=== PATIENT | male | born 1950 | race Caucasian/White ===

== ENCOUNTER 2019-08-17 07:10 | Day surgery (SDC) | payer BC ==
[~2019-08-17] VITALS: Ht 180.3 cm; Wt 99.8 kg
[~2019-08-17 07:10] MED LIST: ALLOPURINOL300 MG PO; ASPIR-LOW81 MG PO; ATENOLOL25 MG PO; DOXYCYCLINE HY100 MG PO; HYDROCHLOROTH12.5 MG PO; HYDROCODON-ACE1 EAC3 PO; LISINOPRIL20 MG PO; LOSARTAN POTAS100 MG PO; MEGA MULTIVIT1 EAC1 PO; MULTIVITAMINS1 EAC7 PO; OSTEO BI-FLEX1 EAC3 PO; PREDNISONE20 MG PO; SIMVASTATIN40 MG PO
[2019-08-17] MEDS ORDERED: TURMERIC500 M2 PO (07:52)
[2019-08-17] MEDS ORDERED: METFORMIN HCL500 MG PO (07:53)
--- NOTE | 2019-08-17 09:29 | NUR ---
08/17/19 0929 Citlalli,Brie 0916 PT ARRIVED TO PACU ON 2L VIA NC, PT AWAKE AND TALKING TO RN. VSS. 0920 O2 REMOVED. PLAN OF CARE DISCUSSED AND RN ENCOURAGED TO PASS GAS.
--- NOTE | 2019-08-17 16:08 | OR ---
[facility] [address] [place], [place] [address] Signed DATE OF OPERATION: 08/17/2019 SURGEON: Karina Barrios MD PREOPERATIVE DIAGNOSES: 1. Family history of colon cancer (mother at 61). 2. Positive Cologuard test. POSTOPERATIVE DIAGNOSIS: Polyps x3. PROCEDURE: Total colonoscopy to cecum with hot snare polypectomy x1 at splenic flexure and cold morcellation polypectomy x2, cecum and right colon. ANESTHESIA: Intravenous sedation fentanyl 100 mcg and Versed 9 mg. INDICATION: A 68-year-old white man is a patient of Dr. Jensen. He has family history of colon cancer in his mother, who of the disease at age 61. Due to the COVID-19 pandemic, he underwent a Cologuard test on the direction of Dr. Jensen, which was found to be positive and on that basis, he is now here for colonoscopy. The risks of bleeding, infection, and perforation were reviewed with him he understands wished to proceed. FINDINGS: The prep was excellent. Complete colonoscopy was undertaken of the cecum. There were two small polyps on the right side at the cecum and the right colon, both excised with cold morcellation technique. A larger polyp was noted at the splenic flexure, which was excised with hot snare polypectomy technique. The remaining colon was normal. DESCRIPTION OF PROCEDURE: The patient was brought to the endoscopy suite and placed in lateral decubitus position. Given intravenous sedation to the point of slurred speech and nystagmus with full cardiopulmonary monitoring. Digital rectal examination was normal. An Olympus video colonoscope was passed in the rectum and manipulated throughout the colon ultimately intubating the cecum, ileocecal valve was identified as was the appendiceal orifice. Intubation of the ileum showed no sign of abnormality. The scope was withdrawn and a small polyp was noted in the cecum. Narrow band imaging confirmed Electronically Signed By: KARINA BARRIOS MD 08/17/19 1608 PATIENT NAME: CHRIS CAM OPERATIVE REPORT DATE OF : 50 REPORT #: [id number] PHYSICIAN: KARINA BARRIOS MD PCP: GERARDO JENSEN MD REPORT IS CONFIDENTIAL AND NOT TO BE RELEASED WITHOUT AUTHORIZATION [facility] [address], [place] [address] Signed it likely to be an adenoma. It was excised with cold morcellation technique without problem. The scope was further withdrawn. Another similar such polyp was noted in the right colon, which was excised similarly. Careful withdrawal of scope showed another larger sessile polyp at the left transverse or splenic flexure area. This was excised with hot snare polypectomy technique without problem. Further withdrawal of scope showed no other abnormalities. Retroflexed view was normal. Scope was removed. The patient was taken to the recovery room in good condition. CONCLUDING DIAGNOSIS: Polyps x3. PLAN: Recommend a repeat colonoscopy in 3 years given the polyps, sooner if symptoms should occur. He will return to the ongoing care of Dr. Jensen otherwise. MD YRN Wade/LUCY /[id number] cc: Gerardo Jensen MD Copies: GERARDO JENSEN MD ~ Electronically Signed By: KARINA BARRIOS MD 08/17/19 1608 PATIENT NAME: CHRIS CAM OPERATIVE REPORT DATE OF : 50 REPORT #: [id number] PHYSICIAN: KARINA BARRIOS MD PCP: GERARDO JENSEN MD REPORT IS CONFIDENTIAL AND NOT TO BE RELEASED WITHOUT AUTHORIZATION
--- NOTE | 2019-08-21 16:38 | PATH ---
[facility] [address] [place], [place] [address] Signed SPECIMEN(S): A CECAL POLYP SPECIMEN(S): B ASCENDING POLYP SPECIMEN(S): C SPLENIC FLEXURE POLYP SPECIMEN SOURCE: A. CECAL POLYP B. ASCENDING POLYP C. SPLENIC FLEXURE POLYP CLINICAL HISTORY: Colonoscopy with possible biopsies. Preop: Positive Cologuard test, anemia, history of polyps, family history of colon CA. Postop: Polyps x 3. MICROSCOPIC DESCRIPTION: Histologic sections of all submitted blocks are examined by light microscopy. These findings, together with the gross examination, support the pathologic diagnosis. FINAL PATHOLOGIC DIAGNOSIS: A. Colon, cecum, polyp, polypectomy: - Tubular adenoma. - Negative for high-grade dysplasia or malignancy. B. Colon, ascending, polyp, polypectomy: - Colonic mucosa with mucosal lymphoid aggregate. - Negative for dysplasia or malignancy. C. Colon, splenic flexure, polyp, polypectomy: - Tubular adenoma. - Negative for high-grade dysplasia or malignancy. NAL:cml:C2NR GROSS DESCRIPTION: Three specimens are received in three containers, labeled "JJ." A. The specimen, labeled "JJ, #1," and designated on the requisition "cecum," is received in formalin and consists of one crockett soft tissue fragment that measures 0.3 cm in greatest dimension. The specimen is entirely submitted in cassette (A1). B. The specimen, labeled "JJ, #2," and designated on the requisition "ascending colon," is received in formalin and consists of one crockett soft tissue fragment that measures 0.3 cm in greatest dimension. The specimen is entirely submitted in cassette (B1). C. The specimen, labeled "JJ, #3," and designated on the requisition "splenic flexure," is received in formalin and consists of one crockett soft tissue polypoid PATIENT NAME: CHRIS CAM PATHOLOGY DATE OF : 50 REPORT #: [id number] PHYSICIAN: EMA PATHOLOGY PCP: CISCO HELLER MD REPORT IS CONFIDENTIAL AND NOT TO BE RELEASED WITHOUT AUTHORIZATION [facility] [address] [place], [place] [address] Signed fragment that measures 0.7 cm in greatest dimension. The specimen is inked black, bisected, and entirely submitted in cassette (C1). AT (under the direct supervision of a pathologist) The Gross Description was prepared using a voice recognition system. The report was reviewed for accuracy; however, sound-alike word errors, addition and/or deletions may occur. If there is any question about this report, please contact Client Services. PERFORMING LABORATORY: The technical component was performed by [employer], [address] [place] [id number] (Smash Piecer: Celena Vela MD; CLIA# [id number]). [facility], [address] [address] (CLIA# [id number]). Diagnostician: Aleksandra Castillo MD Pathologist Electronically Signed 08/21/2019 Copies: ~ PATIENT NAME: CHRIS CAM PATHOLOGY DATE OF : 50 REPORT #: [id number] PHYSICIAN: EMA PATHOLOGY PCP: CISCO HELLER MD REPORT IS CONFIDENTIAL AND NOT TO BE RELEASED WITHOUT AUTHORIZATION
== END 2019-08-17 09:53 | disposition home or self-care (01) ==
LOC: DS 07:10 → OPS 07:10 → DS 08:15 → OPS 08:15
PROVIDERS: Surgery
PROC: 0DBL8ZZ Excision of Transverse Colon, Via Natural or Artificial Opening Endoscopic (ICD-10-PCS; 2019-08-17)
PROC: 0DBH8ZZ Excision of Cecum, Via Natural or Artificial Opening Endoscopic (ICD-10-PCS; 2019-08-17)
PROC: 0DBK8ZZ Excision of Ascending Colon, Via Natural or Artificial Opening Endoscopic (ICD-10-PCS; principal; 2019-08-17 08:15)
DX: D12.0 Benign neoplasm of cecum (principal); D12.3 Benign neoplasm of transverse colon; D64.9 Anemia, unspecified; Z80.0 Family history of malignant neoplasm of digestive organs; Z79.899 Other long term (current) drug therapy; Z79.84 Long term (current) use of oral hypoglycemic drugs
CPT/HCPCS: 99153; G0500; J2250; J3010; J7121

== ENCOUNTER 2021-03-04 05:35 | Day surgery (SDC) | payer BC, MEDICARE ==
[~2021-03-04] VITALS: Ht 180.3 cm; Wt 102.3 kg
--- NOTE | ~2021-03-04 | OR ---
[facility] [address] [place], [place] [address] Draft DATE OF OPERATION: 03/04/2021 SURGEON: Christy Baldwin MD PREOPERATIVE DIAGNOSIS: Large rotator cuff tear, left shoulder. POSTOPERATIVE DIAGNOSIS: Large rotator cuff tear, left shoulder. PROCEDURE PERFORMED: Left shoulder arthroscopy with debridement. CREDENTIALING MANAGER: None. ANESTHESIA: General. ESTIMATED BLOOD LOSS: Minimal. BRIEF HISTORY: Mr. Stacy is a 70-year-old gentleman with pain and weakness in his shoulder. He had an MRI, which was consistent with a large to massive rotator cuff tear. Risks, benefits, and alternatives of operative treatment were discussed with him. He elected to proceed. DESCRIPTION OF PROCEDURE: Once consent was obtained, he was taken to the operating room. After adequate anesthesia, he was placed in beach chair position. All downside pressure points well padded. The left shoulder was prepped and draped in the standard sterile fashion. The shoulder was injected with 15 mL of 0.25% Marcaine with epinephrine as was subacromial space. Standard posterior portal was made and the scope was introduced into the shoulder. 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 The biceps was partially torn and was extremely inflamed and thickened. The subscapularis was intact. The labrum was intact. The rotator cuff was noted to be torn from the subscapularis extending 4 cm. This was retracted to the glenoid rim and was only minimal excursion. PATIENT NAME: CHRIS CAM OPERATIVE REPORT DATE OF : 50 REPORT #: [id number] PHYSICIAN: CHRISTY BALDWIN MD PCP: CISCO HELLER MD REPORT IS CONFIDENTIAL AND NOT TO BE RELEASED WITHOUT AUTHORIZATION [facility] [address] [facility] [place] [place] [address] Draft Minimal bursitis was noted. DESCRIPTION OF PROCEDURE: Anterior, anterior lateral and lateral portals were established and a traction stitch was placed in the rotator cuff. We then cleaned out the bursa with a complete bursectomy. The rotator cuff was then mobilized as much as we could on the superior and inferior surfaces. We again attempted to bring it back to the tuberosity; however, we could only get it to about a centimeter from its normal attachment. The tendon, particularly the supraspinatus tendon was quite friable. Grasper would tear off the tissue and it appeared the tissue was of poor quality. At that point, we determined that the cuff was ir-repairable. The edges were debrided as was the tuberosity. The biceps was tenotomized as there was really poor quality tissue in the biceps itself as well. The debris was evacuated using the shaver. The scope was then withdrawn. Portals were closed with 3-0 nylon. The shoulder was injected with 60 mg Toradol. All wounds were dressed with Allevyn and OpSite. He tolerated the procedure well. All sponge, needle, and instrument counts were correct. Christy Baldwin MD BA/REBECCAL /[id number] Copies: ~ PATIENT NAME: DORINACHRIS OPERATIVE REPORT DATE OF : 50 REPORT #: [id number] PHYSICIAN: CHRISTY BALDWNI MD PCP: CISCO HELLER MD REPORT IS CONFIDENTIAL AND NOT TO BE RELEASED WITHOUT AUTHORIZATION
[~2021-03-04 05:35] MED LIST changes: +METFORMIN HCL500 MG PO; +TURMERIC500 M2 PO
[2021-03-04] MEDS ORDERED: CELECOXIB200 MG PO (08:13)
[2021-03-04] MEDS ORDERED: HYDROCODON-ACE1 EA10 PO (08:13)
--- NOTE | 2021-03-04 08:21 | NUR ---
03/04/21 0821 RODOLFO MUNROE 0811-PATIENT TO PACU ON 6L VIA MASK. PATIENT IS NONAROUSABLE. ORAL AIRWAY IN PLACE. RESP EVEN AND UNLABORED. VSS. 0815-PATIENT AWAKES TO VEBAL STIMULI. ORAL AIRWAY REMOVED. ON 6L VIA MASK. PATIENT ANSWERES QUESTIONS. RESP EVEN AND UNLABORED.
--- NOTE | 2021-03-04 09:08 | NUR ---
0850: PT RETURNS TO UNIT ROOM 3 FROM PACU VIA STRETCHER. ALERT AND AWAKE ON ARRIVAL. ALFRED PO INTAKE. VSS, RESP EVEN AND UNLABORED ON RA. 3 TROCHAR SITES DRESSED WITH ALLEVYN AND AN OPSITE. MIDDLE TROCHAR SITE WITH SMALL AMOUNT OF SHADOWING. CMS WNL. DENIES PAIN AND NAUSEA. CRYO CUFF AND SCDS IN PLACE. ICE WATER AND CRACKERS AT THE BEDSIDE. POC DISCUSSED AND PT AGREEABLE. NO NEEDS VOICED, CALL LIGHT WITHIN REACH
--- NOTE | 2021-03-04 10:22 | NUR ---
0945: PT AWAKE AND ALERT IN STRETCHER. VSS, RESP EVEN AND UNLABORED. NO CHANGE TO DRESSING X3 FROM ARRIVAL. CONTS TO DENY PAIN AND NAUSEA, CMS WNL. SCDS REMOVED AND IV CONVERTED TO SL, WNL. DANGLES AT THE BEDSIDE, ALFRED WELL. DENIES DIZZINESS AND SOB. AMBULATES TO BR WITH STANDBY ASSIST FROM THIS RN. STEADY GAIT. SUCCESSFUL FIRST POSTOP VOID, 200ML. BACK TO ROOM TO PREPARE FOR DC 1015: DC INSTRUCTIONS PROVIDED AND DISCUSSED ORDERED. PT VOICES UNDERSTANDING AND DENIES QUESTIONS AND CONCERNS AT THIS TIME. SL REMOVED WITH CATH TIP INTACT AND PRESSURE APPLIED TO SITE. WHEELED OFF OF UNIT IN WC BY THIS RN. TRANSFERS INTO VEHICLE INDEPENDENTLY AND APPROPRIATELY. NO PHYSICAL S/S OF DISTRESS AT THIS TIME
== END 2021-03-04 10:15 | disposition home or self-care (01) ==
LOC: DS 05:35
PROVIDERS: ATTEND Specialist
PROC: 0RBK4ZZ Excision of Left Shoulder Joint, Percutaneous Endoscopic Approach (ICD-10-PCS; principal; 2021-03-04 06:45)
DX: M75.112 Incomplete rotator cuff tear or rupture of left shoulder, not specified as traumatic (principal); G89.18 Other acute postprocedural pain; E11.8 Type 2 diabetes mellitus with unspecified complications; Z79.84 Long term (current) use of oral hypoglycemic drugs; I10 Essential (primary) hypertension; E78.00 Pure hypercholesterolemia, unspecified; Z87.891 Personal history of nicotine dependence
CPT/HCPCS: 64415; 76942; 80053; 85025; J0330; J0690; J1885; J2001; J2250; J2795; J7121

== ENCOUNTER 2022-12-23 08:52 | Day surgery (SDC) | payer BC ==
[~2022-12-23] VITALS: Ht 180.3 cm; Wt 102.3 kg
[~2022-12-23 08:52] MED LIST changes: +AMLODIPINE BESY10 MG PO; +CELECOXIB200 MG PO; +HYDROCODON-ACE1 EA10 PO; +LIPITOR20 MG PO
[2022-12-23 09:13] VITALS: BP 114/76
[2022-12-23] MEDS ORDERED: VITAMIN D350 MC3 PO (09:13)
[2022-12-23] MEDS ORDERED: VITAMIN B-12500 MCG PO (09:13)
[2022-12-23 11:01] VITALS: BP 116/75
--- NOTE | 2022-12-23 11:22 | NUR ---
12/23/22 1122 Chioma García 1042- PT PRESENTS TO PACU, ALERT AND SITTING UP IN HIGH GUERRIER POSITION. PT SLIGTHLY DROWSY BUT REPORTS FEELING GREAT. DENIES PAIN OR NAUSEA. ABD ROUND AND FIRM. ENCOURAGED TO PASS GAS. LR INFUSING TO RH IV, O2 AT 3L PER NC. ALL MONITORS APPLIED. 1047- PT PLACED ON AIR AT THIS TIME. CONTINUES TO HAVE NO COMPLAINTS. WILL CONTINUE MONITOR. 1049- ICE WATER PROVIDED, PT TOLERATING WELL. REPORTS HE FEELS VERY ALERT. 1055- PT CONTINUES TO HAVE NO COMPLAINTS, SITTING UP TALKING IN FULL SENTENCES. WILL OBTAIN LAST SET OF VITAL SIGNS AND PREP FOR D/C. 1100- PT UP TO SIDE OF BED, TOLERATED WELL. PT TO GET DRESSED. RIDE CALLED TO MEET IN FRONT OF HOSPITAL. 1107- SALINE LOCK REMOVED, TIP INTACT, DRESSING APPLIED. PT ALERT AND ORIENTED. TRANSFERRED TO WHEEL CHAIR WITHOUT DIFFICULTY. VERBALIZED UNDERSTANDING OF INSTRUCTIONS. 1110- PT ASSISTED OUT TO VEHICLE VIA WHEEL CHAIR. NO SIGNS OF DISTRESS. TRANSFERRED TO VEHICLE WITHOUT DIFFICULTY.
--- NOTE | 2022-12-27 08:53 | OR ---
[facility] [address] [place], [place] [address] Signed DATE OF OPERATION: 12/23/2022 SURGEON: Karina Barrios MD PREOPERATIVE DIAGNOSIS: History of tubular adenomas, 2019. POSTOPERATIVE DIAGNOSIS: Diminutive polyps of rectosigmoid, probably hyperplastic. PROCEDURE: Total colonoscopy to cecum with cold morcellation polypectomy x4. ANESTHESIA: Intravenous sedation, fentanyl 150 mcg and Versed 8 mg. INDICATIONS: This 72-year-old white man is a patient of Dr. Sam and well known to me from the past. He last underwent colonoscopy in 2019, at which time he was found to have tubular adenoma of the cecum as well as splenic flexure. He is currently having no symptoms of bleeding, diarrhea, or constipation. He has no family history of colon cancer, though previously he did think that his mother had colon cancer; it turns out she had uterine cancer. On the basis of his history of polyps, I have recommended colonoscopy at this time. The risk of bleeding, infection, and perforation related to colonoscopy was reviewed with him. He understands and wished to proceed. FINDINGS: The prep was quite good. Complete colonoscopy was undertaken to the cecum. He had no evidence of large polyp, but did have diminutive probably hyperplastic polyps of the rectosigmoid, which were excised. DESCRIPTION OF PROCEDURE: The patient was brought to the endoscopy suite and placed in lateral decubitus position given intravenous sedation to the point of slurred speech and nystagmus. Digital rectal examination was normal. An Olympus video colonoscope was passed into the rectum and passed ultimately to the right colon with visualization of the cecum. A biopsy forceps was used to elevate the mucosa of the cecum as complete full intubation. The cecum was not forthcoming. There was no evidence of abnormality. The scope was then withdrawn. Examination throughout Electronically Signed By: KARINA BARRIOS MD 12/27/22 0853 PATIENT NAME: CHRIS CAM OPERATIVE REPORT DATE OF : 50 REPORT #: [id number] PHYSICIAN: KARINA ABRRIOS MD PCP: JOSE SAM MD REPORT IS CONFIDENTIAL AND NOT TO BE RELEASED WITHOUT AUTHORIZATION [facility] [address] [place], [place] [address] Signed showed no sign of abnormality until retroflexed view of the rectum, which showed diminutive polyps, probably hyperplastic in histology. These were excised with cold morcellation technique, four in total were removed. The scope was straightened, withdrawn, and removed. The patient taken to the recovery room in good condition. CONCLUDING DIAGNOSIS: Most likely rectal hyperplastic polyps. PLAN: Recommend repeat colonoscopy in seven years or sooner if clinically indicated. He will return to the ongoing care of Dr. Sam. MD YRN Wade/REBECCAL /[id number] cc: Dr. Sam Copies: ~ Electronically Signed By: KARINA BARRIOS MD 12/27/22 0853 PATIENT NAME: CHRIS CAM OPERATIVE REPORT DATE OF : 50 REPORT #: [id number] PHYSICIAN: KARINA BARRIOS MD PCP: JOSE SAM MD REPORT IS CONFIDENTIAL AND NOT TO BE RELEASED WITHOUT AUTHORIZATION
--- NOTE | 2022-12-28 14:37 | PATH ---
[facility] [address] [place], [place] [address] Signed SPECIMEN(S): A RECTAL POLYPS SPECIMEN SOURCE: A. RECTAL POLYPS CLINICAL HISTORY: History of polyps. Post: Polyps x 4 rectum. FINAL PATHOLOGIC DIAGNOSIS: Rectal polyps: - Hyperplastic polyp (three fragments). JVR:cml MICROSCOPIC EXAMINATION: Histologic sections of all submitted blocks are examined by light microscopy. These findings, together with the gross examination, support the pathologic diagnosis. GROSS DESCRIPTION: The specimen, labeled and designated "Myra Cam, colon, rectum polypectomy diminutive," is received in formalin and consists of 3 crockett-white soft tissue fragments measuring 0.3 x 0.4 cm in greatest dimension, all specimens are submitted entirely in (A1). MMA (under the direct supervision of a pathologist) The Gross Description was prepared using a voice recognition system. The report was reviewed for accuracy; however, sound-alike word errors, addition and/or deletions may occur. If there is any question about this report, please contact Client Services. PERFORMING LABORATORY: Technical component was performed by [employer], [address] [place] [id number] (CLIA# [id number]). Professional interpretation was performed by [facility], [address] [place] [id number] (CLIA#: [id number]). Diagnostician: Nicola Cordova MD Pathologist Electronically Signed 12/28/2022 Copies: PATIENT NAME: CHRIS CAM PATHOLOGY DATE OF : 50 REPORT #: [id number] PHYSICIAN: EMA PATHOLOGY PCP: JOSE TRIMBLE MD REPORT IS CONFIDENTIAL AND NOT TO BE RELEASED WITHOUT AUTHORIZATION [address] [address] Signed ~ PATIENT NAME: CHRIS CAM PATHOLOGY DATE OF : 50 REPORT #: [id number] PHYSICIAN: EMA PATHOLOGY PCP: JOSE TRIMBLE MD REPORT IS CONFIDENTIAL AND NOT TO BE RELEASED WITHOUT AUTHORIZATION
== END 2022-12-23 11:10 | disposition home or self-care (01) ==
LOC: OPS 08:52 → DS 08:59 → OPS 09:45 → DS 13:00
PROVIDERS: ATTEND Surgery
PROC: 0DBN8ZX Excision of Sigmoid Colon, Via Natural or Artificial Opening Endoscopic, Diagnostic (ICD-10-PCS; principal; 2022-12-23 10:30)
DX: Z12.11 Encounter for screening for malignant neoplasm of colon (principal); K63.5 Polyp of colon; Z86.010 Personal history of colon polyps; I10 Essential (primary) hypertension; E78.5 Hyperlipidemia, unspecified; E66.9 Obesity, unspecified; Z68.31 Body mass index [BMI] 31.0-31.9, adult
CPT/HCPCS: 99153; G0500; J2250; J3010; J7121